=== PATIENT | male | born 1955 | race African-American/Black ===

== ENCOUNTER 2024-07-19 19:31 | Emergency (ER) | payer OTHER ==
[~2024-07-19] VITALS: Ht 182.9 cm; Wt 70.0 kg
[2024-07-19 19:38] VITALS: O2SAT 100
[2024-07-20 00:21] LABS: HEMATOCRIT. 35.8 % (42.0-52.0); HEMOGLOBIN. 11.9 g/dL (14.0-18.0); LYMPHOCYTES % 20.2 % (20.0-50.0); MEAN CORPUSCULAR HEMOGLOBIN 31.4 pg (28.0-32.0); MEAN CORPUSCULAR HGB CONC 33.3 g/dL (31.0-37.0); MEAN CORPUSCULAR VOLUME 94.1 fL (80.0-94.0); MEAN PLATELET VOLUME 7.8 fl (7.4-10.4); NEUTROPHILS % 70.8 % (40.0-76.0); PLATELET 237 x1000/uL (130-400); RED BLOOD CELL COUNT 3.81 mill/uL (4.7-6.1); RED CELL DISTRIBUTION WIDTH 12.9 % (11.6-14.6); WHITE BLOOD COUNT 10.4 x1000/uL (4.5-11.0)
[2024-07-20 00:23] LABS: CHLORIDE 104 mEq/L (98-107); POTASSIUM 4.9 mEq/L (3.5-5.1); SODIUM 138 mEq/L (136-145)
[2024-07-20 00:24] LABS: CALCIUM 9.4 mg/dL (8.7-10.4); CARBON DIOXIDE 29 mEq/L (21-32)
[2024-07-20 00:29] LABS: CREATININE 1.1 mg/dL (0.6-1.3); GLUCOSE 240 mg/dL (70-105); UREA NITROGEN BLOOD 31 mg/dL (9-23)
[2024-07-20 00:30] LABS: TROPONIN I HIGH SENSITIVITY 7 ng/L (3.0-53)
[2024-07-20 00:32] LABS: BETA HYDROXYBUTYRATE 0.1 mMol/L (0.0-0.3)
[2024-07-20 02:01] VITALS: BP 126/80; PULSE 94; RESP 21; TEMP 36.72516; O2SAT 100
== END 2024-07-20 02:49 | disposition short-term general hospital (02) ==
LOC: ER 19:31
DX: T84.038A Mechanical loosening of other internal prosthetic joint, initial encounter (principal); E11.65 Type 2 diabetes mellitus with hyperglycemia; I10 Essential (primary) hypertension; E78.5 Hyperlipidemia, unspecified; M48.02 Spinal stenosis, cervical region; W19.XXXA Unspecified fall, initial encounter; Y93.89 Activity, other specified; Y92.89 Other specified places as the place of occurrence of the external cause; Y99.8 Other external cause status
CPT/HCPCS: 36415; 71101; 80048; 82010; 82803; 84484; 85025; 99285; L0172